=== PATIENT | female | born 1970 | race Caucasian/White ===

== ENCOUNTER 2018-02-02 16:57 | Inpatient (IN) | payer MEDICAID ==
[~2018-02-02] VITALS: Ht 157.5 cm; Wt 91.9 kg
[2018-02-02 17:21] VITALS: Ht 157.5 cm; Wt 91.9 kg
[2018-02-02 21:24] LABS: BASOPHIL % 0.4 % (0-2); CALCIUM 9.2 mg/dL (8.5-10.1); CARBON DIOXIDE 29.1 mmol/L (21-32); CHLORIDE SERUM 97 mmol/L (98-107); CREATININE SERUM 0.8 mg/dL (0.6-1.0); GFR1 > 60 mL/min; GLUCOSE SERUM 136 mg/dL (74-106); PLATELET COUNT 296 x10^3mcL (130-400); POTASSIUM SERUM 3.3 mmol/L (3.5-5.1); SODIUM SERUM 133 mmol/L (136-145)
[2018-02-02 21:28] LABS: ALBUMIN 4.4 g/dL (3.4-5.0); ALKALINE PHOSPHATASE 87 U/L (46-116); ALT/SGPT 31 U/L (14-59); AST/SGOT 8 U/L (15-37); BILIRUBIN TOTAL 0.66 mg/dL (0.20-1.00); LIPASE 558 IU/L (73-393); TOTAL PROTEIN, SERUM 8.1 g/dL (6.4-8.2)
[2018-02-03 00:50] VITALS: BP 153/75
[2018-02-03 00:56] LABS: PHOSPHOROUS 3.5 mg/dL (2.5-4.9)
[2018-02-03 00:58] LABS: CHOLESTEROL/HDL RATIO 3.9
[2018-02-03 03:26] LABS: UA SPECIFIC GRAVITY >=1.030 (1.005-1.035); microscopic required? YES; urine erythrocyte TRACE (NEGATIVE)
[2018-02-03 05:12] VITALS: BP 133/63
[2018-02-03 07:48] LABS: CALCIUM 8.7 mg/dL (8.5-10.1); CARBON DIOXIDE 27.2 mmol/L (21-32); CHLORIDE SERUM 99 mmol/L (98-107); CREATININE SERUM 0.8 mg/dL (0.6-1.0); GFR1 > 60 mL/min; GLUCOSE SERUM 112 mg/dL (74-106); LIPASE 318 IU/L (73-393); POTASSIUM SERUM 3.5 mmol/L (3.5-5.1); SODIUM SERUM 136 mmol/L (136-145)
[2018-02-03 08:39] LABS: PLATELET COUNT 249 x10^3mcL (130-400)
[2018-02-03 08:46] LABS: BASOPHIL % 0 % (0-2)
[2018-02-03 09:32] VITALS: BP 127/63
[2018-02-03 17:24] VITALS: BP 117/66
[2018-02-03 21:10] VITALS: BP 115/61
[2018-02-04 05:53] VITALS: BP 112/48
[2018-02-04 07:28] LABS: BASOPHIL % 0.2 % (0-2); PLATELET COUNT 196 x10^3mcL (130-400); RED CELL DISTRIBUTION WIDTH 13.9 % (11.5-14.5)
[2018-02-04 07:33] LABS: ALKALINE PHOSPHATASE 54 U/L (46-116); ALT/SGPT 124 U/L (14-59); AST/SGOT 92 U/L (15-37); BILIRUBIN TOTAL 0.5 mg/dL (0.20-1.00); CALCIUM 8.5 mg/dL (8.5-10.1); CARBON DIOXIDE 30.7 mmol/L (21-32); CHLORIDE SERUM 102 mmol/L (98-107); GFR1 > 60 mL/min; GLUCOSE SERUM 113 mg/dL (74-106); MAGNESIUM 1.9 mg/dL (1.8-2.4); PHOSPHOROUS 2.3 mg/dL (2.5-4.9); POTASSIUM SERUM 3.6 mmol/L (3.5-5.1); SODIUM SERUM 141 mmol/L (136-145)
[2018-02-04 07:39] LABS: ALBUMIN 2.9 g/dL (3.4-5.0); TOTAL PROTEIN, SERUM 6.1 g/dL (6.4-8.2)
[2018-02-04 09:16] VITALS: BP 112/50
[2018-02-04 13:46] VITALS: BP 112/50
[2018-02-04] MEDS ORDERED: FLA500 PO (14:54)
[2018-02-04] MEDS ORDERED: LEVOFLOXACIN500 M1 PO (14:54)
[2018-02-04] MEDS ORDERED: NORCO1 TA1 PO (14:57)
== END 2018-02-04 16:16 | disposition home or self-care (01) | DRG 263 ==
LOC: ED 16:57 → MU 23:14
PROVIDERS: Emergency Medicine; Family Medicine; Internal Medicine; Surgery
PROC: 0FT44ZZ Resection of Gallbladder, Percutaneous Endoscopic Approach (ICD-10-PCS; principal; 2018-02-03 11:00)
DX: K80.62 Calculus of gallbladder and bile duct with acute cholecystitis without obstruction (principal); N17.0 Acute kidney failure with tubular necrosis; K85.10 Biliary acute pancreatitis without necrosis or infection; K65.9 Peritonitis, unspecified; K82.1 Hydrops of gallbladder; E87.1 Hypo-osmolality and hyponatremia; E87.6 Hypokalemia; Z68.37 Body mass index [BMI] 37.0-37.9, adult; D72.829 Elevated white blood cell count, unspecified; E78.5 Hyperlipidemia, unspecified; E66.9 Obesity, unspecified; Z71.3 Dietary counseling and surveillance; Z83.3 Family history of diabetes mellitus; Z82.49 Family history of ischemic heart disease and other diseases of the circulatory system
CPT/HCPCS: 90658; J0330; J1170; J1885; J2250; J2270; J2405; J2543; J2704; J2710; J3010; J3490; J7030; J7120; Q0092